=== PATIENT | male | born 1975 | race Caucasian/White ===

== ENCOUNTER 2017-11-22 22:42 | Emergency (ER) | payer MEDICAID, OTHER ==
[2017-11-22 23:01] VITALS: BP 137/94; PULSE 107; RESP 20; TEMP 99.4; O2SAT 97
--- NOTE | 2017-11-22 23:22 | C.PDOC ---
History Of Present Illness Patient complains of cough and cold for 2 weeks. Patient states he was seen by his PMD twice for this illness, first treated with Z-pack, then seen again 5 days ago and prescribed Amoxicillin, prednisone, singulair. Patient states he still has dry cough and unable to sleep at night. Denies any chest pain or SOB. Time Seen by Provider: 11/22/17 23:04 Chief Complaint (Nursing): Cough, Cold, Congestion History Per: Patient History/Exam Limitations: no limitations Onset/Duration Of Symptoms: Days Current Symptoms Are (Timing): Still Present Location Of Pain: Throat Sick Contacts (Context): None Associated Symptoms: Cough Ear Symptoms: Bilateral: None Recent travel outside of the [place]: No Additional History Per: Patient Past Medical History Reviewed: Historical Data, Nursing Documentation, Vital Signs Vital Signs: Last Vital Signs Temp 99.4 F 11/22/17 22:57 Pulse 107 H 11/22/17 22:57 Resp 20 11/22/17 22:57 BP 137/94 H 11/22/17 22:57 Pulse Ox 97 11/22/17 22:57 - Medical History PMH: Anxiety Surgical History: No Surg Hx Family History: States: Unknown Family Hx - Social History Hx Tobacco Use: No Hx Alcohol Use: No Hx Substance Use: No - Immunization History Hx Tetanus Toxoid Vaccination: No Hx Influenza Vaccination: No Hx Pneumococcal Vaccination: No Review Of Systems Constitutional: Negative for: Fever, Chills ENT: Negative for: Nose Congestion, Throat Pain Cardiovascular: Negative for: Chest Pain Respiratory: Positive for: Cough. Negative for: Shortness of Breath, Sputum Gastrointestinal: Negative for: Nausea, Vomiting Skin: Negative for: Rash Neurological: Negative for: Headache, Dizziness Physical Exam - Physical Exam Appears: Non-toxic, No Acute Distress Skin: Normal Color, Warm, Dry Head: Atraumatic, Normacephalic Eye(s): bilateral: Normal Inspection Ear(s): Bilateral: Normal Nose: No Discharge Oral Mucosa: Moist Throat: Normal, No Erythema, No Exudate Neck: Normal ROM, Supple Chest: Symmetrical Cardiovascular: Rhythm Regular Respiratory: Normal Breath Sounds, No Rales, No Rhonchi, No Wheezing, Other (active dry cough) Extremity: Normal ROM, No Tenderness, No Swelling Neurological/Psych: Oriented x3, Normal Speech, Normal Cognition Gait: Steady ED Course And Treatment O2 Sat by Pulse Oximetry: 97 (On RA) Pulse Ox Interpretation: Normal Medical Decision Making Medical Decision Making: Impression: Bronchitis on second course of antibiotics. Active cough, lungs clear bilaterally with good air entry. Offer Xray, but patient declined he just wants medicine to stop cough. Will pres cribe cough syrup. Patient otherwise appears well nontoxic, not febrile, and O2 saturation is adequate. Disposition Counseled Patient/Family Regarding: Diagnosis, Need For Followup, Rx Given - Disposition Referrals: Shaik Grajeda MD [Staff Provider] - Disposition: HOME/ ROUTINE Disposition Time: 23:28 Condition: GOOD Additional Instructions: Continue and finish antibiotics Take Prednisone until complete Take Singulair as indicated Inhaler as needed Cough medicine as needed Prescriptions: Promethazine HCl/Codeine [Prometh-Codein 6.25-10 mg/5 ml] 5 ml PO Q8 PRN #6 oz PRN Reason: Cough Instructions: Acute Bronchitis Forms: [facility] (Malay) - POA Present On Arrival: None - Clinical Impression Clinical Impression: Bronchospasm, Bronchitis - PA / OXYACETYLENE BURNER / Resident Statement MD/DO has reviewed & agrees with the documentation as recorded. - Scribe Statement The provider has reviewed the documentation as recorded by the Scribe Abimael Sun All medical record entries made by the Scribe were at my direction and personally dictated by me. I have reviewed the chart and agree that the record accurately reflects my personal performance of the history, physical exam, medical decision making, and the department course for this patient. I have also personally directed, reviewed, and agree with the discharge instructions and disposition.
== END 2017-11-22 23:40 | disposition home or self-care (01) ==
LOC: C.ER 22:42
DX: J40 Bronchitis, not specified as acute or chronic (principal); J98.01 Acute bronchospasm